=== PATIENT | female | born 1950 | race Caucasian/White ===

== ENCOUNTER → 2020-08-11 | Outpatient (CLI) | payer MEDICARE ==
--- NOTE | 2020-08-11 14:15 | RAD ---
INDICATION: Screening for osteopenia/osteoporosis. Postmenopausal evaluation. COMPARISON: None. TECHNIQUE: Bone densitometry was performed through the lumbar spine and proximal femur. IMPRESSION: Lumbar Spine: BMD: 1.07 T-Score: -0.9 Range: Lower limits of normal on border with osteopenia. Proximal Femur: BMD: 0.83 T-Score: -1.0 Range: Osteopenic World Health Organization Criteria for Bone Density: T-Score: > -1.0: Normal Range < -1.0 to -2.5: Osteopenic Range < -2.5: Osteoporotic Range Electronically signed by: Roque Isaacs MD (08/11/2020 2:13 PM) [id number]
== END ==
LOC: DXRAD 09:47
PROVIDERS: ATTEND Specialist
DX: Z13.820 Encounter for screening for osteoporosis (principal); M85.88 Other specified disorders of bone density and structure, other site; Z78.0 Asymptomatic menopausal state
CPT/HCPCS: 77080

== ENCOUNTER → 2020-10-02 | Outpatient (CLI) | payer MEDICARE ==
[~2020-10-02] MED LIST: ASPI-424 PO; CRESTOR20 MG PO; LISI-517 PO; METF10007 PO; MULT-245 PO; SITA50TA PO; UBID200C7 PO
== END ==
LOC: LAB 08:00
PROVIDERS: ATTEND Nurse Anesthetist, Certified Registered
DX: Z01.812 Encounter for preprocedural laboratory examination (principal); Z20.822 Contact with and (suspected) exposure to COVID-19
CPT/HCPCS: U0003; U0005

== ENCOUNTER → 2020-10-06 | Day surgery (SDC) | payer MEDICARE ==
[~2020-10-06] MED LIST changes: +IPRATRPIUM/ALBUTEROL 0.5/2.5MG 3 ML NEBU. NEB PRN; +IV RINGERS SOLUTION,LACTATED 1,000 ML IV SCH; +LIDOCAINE 2% PF 5 ML VIAL. ONE; +MIDAZOLAM HCL PF 2 MG/2 ML VIAL. IV ONE; +ONDANSETRON PF 4 MG/2 ML VIAL. IV PRN; +PROPOFOL 10,000 MCG/ML (20ML) VIAL IV ONE
[2020-10-06 08:35] VITALS: BP 132/70
--- NOTE | 2020-10-07 18:15 | PATHOLOGY ---
[facility] Accession Number: [id number] . 01 Material submitted: . PART A: gastrointestinal site - GASTRIC BIOPSY PART B: esophagus - DISTAL ESOPHAGUS ESOPHAGITIS. Modifiers: distal . 01 Clinical history: . EGD REFLUX ESOPHAGITIS . 02 Diagnosis: A. Gastric biopsies: - Chronic gastritis, mild. . B. Esophageal biopsy, distal esophagus: - Reflux esophagitis. (JPM:[facility] 10/07/2020) QTP 10/07/2020 1204 Local . 02 Comment: Sections of the gastric biopsy reveal segments of gastric antral/body transition mucosa showing congestion and very mild chronic inflammation. A properly controlled immunohistochemical stain for Helicobacter is negative for Helicobacter organisms. . Sections of the distal esophageal biopsy reveal a segment of hyperplastic squamous esophageal mucosa consistent with reflux esophagitis. There is no evidence of Perez's changes, dysplasia, or malignancy. (JPM:[facility] 10/07/2020) . Special stain performed: Immunoperoxidase stain for Helicobacter on A1 . 02 Electronically signed: . Eloy Hamilton MD, Pathologist NPI- [id number] . 01 Gross description: . A. Received in formalin labeled "Hazelitt, Gunjan and gastric biopsy-H. pylori". Received are 2 eastman-brown soft tissue fragments ranging from 0.3-0.4 cm. Specimen is entirely submitted in cassette A1. . B. Received in formalin labeled "Hazelitt, Gunjan and distal esophagus-esophagitis". Received is a herr-eastman soft tissue fragment measuring 0.4 x 0.4 x 0.2 cm. Specimen is entirely submitted in cassette B1.(BLJ; 10/06/2020) BLJ/BLJ 10/06/20208 Local . 02 Pathologist provided ICD-10: K29.50, K21.00 . 02 CPT . 950840, 291225, [id number] Specimen Comment: A courtesy copy of this report has been sent to [phone] Specimen Comment: Report sent to Performed at: [address] [facility], [place] [id number] MD Garcia Sarmiento MD Phone: [phone] Performed at: 02 [facility] [address] [place], [place] [id number] MD Eloy Hamilton MD Phone: [phone]
== END | disposition home or self-care (01) ==
LOC: SURG 06:42
PROVIDERS: ATTEND Emergency Medicine
DX: K21.00 Gastro-esophageal reflux disease with esophagitis, without bleeding (principal); K29.50 Unspecified chronic gastritis without bleeding; E78.00 Pure hypercholesterolemia, unspecified; I10 Essential (primary) hypertension; E11.9 Type 2 diabetes mellitus without complications; Z88.5 Allergy status to narcotic agent; Z79.899 Other long term (current) drug therapy; Z79.84 Long term (current) use of oral hypoglycemic drugs; Z88.2 Allergy status to sulfonamides; Z88.8 Allergy status to other drugs, medicaments and biological substances; Z72.89 Other problems related to lifestyle; Z78.0 Asymptomatic menopausal state
CPT/HCPCS: 43239; 82947; 88305; 88342; J2001; J2704; J7120